=== PATIENT | male | born 1955 | race Caucasian/White ===

== ENCOUNTER 2018-05-12 18:22 | Emergency (ER) | payer OTHER ==
[2018-05-12] MEDS: LIDOCAINE 1% (MPF) 5 ML VIAL INJ (19:00)
[2018-05-12] MEDS: LIDOCAINE 1% (MDV) 10 ML INJ INJ (19:19)
== END 2018-05-12 21:50 | disposition home or self-care (01) ==
LOC: E/R 18:22
DX: L02.212 Cutaneous abscess of back [any part, except buttock and flank] (principal)
CPT/HCPCS: 10060; 99283-25